=== PATIENT | male | born 1985 | race Caucasian/White ===

== ENCOUNTER 2021-07-16 11:07 | Emergency (ER) | payer OTHER ==
[2021-07-16 14:02] LABS: BASOPHIL 0 % (0-2); EOSINOPHIL 0 % (0-5); HCT 44.1 % (42.0-52.0); HGB 15.1 g/dl (13.2-18.0); LYMPHOCYTE 4.2 % (15-48); MCH 30.2 pg (25.0-31.0); MCHC 34.2 g/dL (32.0-36.0); MCV 88.2 fL (78.0-100.0); MONOCYTE 4.6 % (0-12); MPV 9.2 fL (6.0-9.5); NEUTROPHIL 90.7 % (41-80); NRBC 0; PLT 148 K/uL (150-400); RDW 12.5 % (11.5-14.0)
[2021-07-16 14:10] LABS: WBC 8.1 K/uL (4.0-10.5)
[2021-07-16 15:06] LABS: ALBUMIN 3.2 g/dL (3.4-5.0); BILIRUBIN - TOTAL 0.6 mg/dL (0.2-1.0); BUN/CREAT RATIO (CALC) 22.2 RATIO; C-REACTIVE PROTEIN 2.6 mg/dL (<=0.90); CREATININE 0.81 mg/dL (0.67-1.17); GLOBULIN (CALCULATION) 3.7 g/dL; MAGNESIUM 2.1 mg/dL (1.8-2.4); POTASSIUM 4.2 mmol/L (3.5-5.1); TOTAL PROTEIN 6.9 g/dL (6.4-8.2)
[2021-07-16 16:08] LABS: BILIRUBIN NEGATIVE (NEGATIVE); BLOOD TRACE-INTACT Ery/uL (NEGATIVE); CLARITY CLEAR (CLEAR); COLOR YELLOW (YELLOW); GLUCOSE (U) NORMAL (NORMAL); LEUKOCYTES NEGATIVE Leu/uL (NEGATIVE); NITRITE NEGATIVE (NEGATIVE); PROTEIN 1+ mg/dL (NEGATIVE); UROBILINOGEN 0.2 mg/dL (0.2-1.0)
[2021-07-16 16:18] LABS: URINARY WBC RARE
[2021-07-16 16:19] LABS: BACTERIA TRACE; SQUAMOUS EPITHELIAL CELLS RARE
== END 2021-07-16 20:25 | disposition home or self-care (01) ==
LOC: FER 11:07
PROVIDERS: Emergency Medicine
DX: U07.1 COVID-19 (principal); Z23 Encounter for immunization
CPT/HCPCS: 36415; 80053; 81001; 82728; 83615; 83690; 83735; 84145; 84484; 85025; 86140; J7030; M0245; U0002